=== PATIENT | male | born 1975 | race Caucasian/White ===

== ENCOUNTER 2017-05-09 19:43 | Emergency (ER) | payer OTHER ==
[2017-05-09 20:29] VITALS: BP 136/91
[2017-05-09 20:55] LABS: Eosinophils % (Auto) 2.4 % (0.0-4.3); Hematocrit 49.1 % (35.5-45.6); Hemoglobin 16.8 gm/dl (11.8-15.2); Mean Corpuscular HGB Conc 34 % (32-34); Mean Corpuscular Hemoglobin 33 pg (28-32); Mean Corpuscular Volume 95 fl (84-94); Platelet Count 194 K/mm3 (140-440); Red Blood Count 5.15 M/mm3 (3.65-5.03); Red Cell Distribution Width 13.6 % (13.2-15.2); White Blood Count 7.8 K/mm3 (4.5-11.0)
[2017-05-09 21:10] LABS: Anion Gap 21 mmol/L; BUN/Creatinine Ratio 13; Blood Urea Nitrogen 10 mg/dL (9-20); Calcium 9.5 mg/dL (8.4-10.2); Carbon Dioxide 26 mmol/L (22-30); Chloride 98.8 mmol/L (98-107); Glucose 86 mg/dL (75-100); Potassium 4.4 mmol/L (3.6-5.0); Sodium 141 mmol/L (137-145)
[2017-05-09 22:50] LABS: Urine Drugs of Abuse Note Disclamer
[2017-05-09 23:06] LABS: Bilirubin,Urine NEG (Negative); Blood,Urine NEG (Negative); Ketones,Urine 20 mg/dL (Negative); Leukocyte Esterase,Urine NEG (Negative); Mucus,Urine FEW /HPF; Nitrite,Urine NEG (Negative); Protein,Urine <15 mg/dL mg/dL (Negative)
== END 2017-05-09 20:35 | disposition left against medical advice (07) ==
LOC: ED 19:43
DX: R07.9 Chest pain, unspecified (principal); Z53.21 Procedure and treatment not carried out due to patient leaving prior to being seen by health care provider
CPT/HCPCS: 36415; 80048; 80307; 81001; 84484; 85025; 93005; 93010; G0480; 80320

== ENCOUNTER 2020-03-25 03:42 | Emergency (ER) | payer SELFPAY ==
--- NOTE | 2020-03-25 10:35 | Emergency Department Report ---
<ELO ABDULLAHI - Last Filed: 03/25/20 12:11> ED General Adult HPI - General Chief complaint: Fall Stated complaint: GENERAL ILLINESS Time Seen by Provider: 03/25/20 08:55 Source: patient, EMS Mode of arrival: Wheelchair Limitations: No Limitations - History of Present Illness Initial comments: 44-year-old -F[place]ish male patient presents with complaints of sudden onset of shortness of breath and syncopal episode x last night. Patient states he was at a store and suddenly became short of breath and passed out hitting his back on the floor. He denies any head trauma, headache, neck pain, chest pain, or current shortness of breath. He rates his back pain as a 7/10 in severity and states there is bruising to the area. Patient has history of alcohol abuse, but denies any other history of medical conditions. He does admit to alcohol use last night. Patient also denies any leg pain/swelling, cough/hemoptysis, r ecent long travel/surgeries, or history of DVT/PE/cancer. He denies being on blood thinners - Related Data Previous Rx's Medication Instructions Recorded Last Taken Type chlordiazePOXIDE [Librium] 25 mg PO .DIREPaulina #50 capsule 01/06/18 Unknown Rx Naproxen [EC-Naprosyn] 500 mg PO BID PRN #14 tablet. 03/25/20 Unknown Rx methOCARBAMOL [Robaxin TAB] 500 mg PO BID PRN #14 tab 03/25/20 Unknown Rx Allergies Allergy/AdvReac Type Severity Reaction Status Date / Time No Known Allergies Allergy Unverified 05/09/17 20:28 ED Review of Systems Constitutional: denies: chills, diaphoresis, fever, malaise Respiratory: shortness of breath. denies: cough Cardiovascular: syncope. denies: chest pain, edema Endocrine: denies: excessive sweating Gastrointestinal: denies: nausea, vomiting Genitourinary: denies: dysuria, frequency, hematuria Musculoskeletal: back pain. denies: joint swelling Skin: denies: rash, lesions, change in color Neurological: denies: headache Hematological/Lymphatic: denies: easy bleeding ED Past Medical Hx - Past Medical History Previous Medical History?: Yes Additional medical history: cocaine and alcohol abuse - Surgical History Past Surgical History?: No - Social History Smoking Status: Current Every Day Smoker - Medications Home Medications: Home Medications Medication Instructions Recorded Confirmed Last Taken Type chlordiazePOXIDE [Librium] 25 mg PO .DIREC #50 capsule 01/06/18 Unknown Rx Naproxen [EC-Naprosyn] 500 mg PO BID PRN #14 tablet.dr 03/25/20 Unknown Rx methOCARBAMOL [Robaxin TAB] 500 mg PO BID PRN #14 tab 03/25/20 Unknown Rx ED Physical Exam - General Limitations: No Limitations General appearance: alert, in no apparent distress - Head Head exam: Present: atraumatic, normocephalic - Eye Eye exam: Present: normal appearance, PERRL, EOMI. Absent: scleral icterus - Neck Neck exam: Present: normal inspection, full ROM. Absent: tenderness - Respiratory Respiratory exam: Present: normal lung sounds bilaterally. Absent: respiratory distress, wheezes, chest wall tenderness, accessory muscle use - Cardiovascular Cardiovascular Exam: Present: regular rate, normal rhythm. Absent: systolic murmur, diastolic murmur, rubs, gallop - GI/Abdominal GI/Abdominal exam: Present: soft. Absent: distended, tenderness, guarding, rebound - Extremities Exam Extremities exam: Present: full ROM. Absent: calf tenderness (No swelling or tenderness to palpation noted bilaterally tolerated) - Back Exam Back exam: Present: full ROM, paraspinal tenderness, vertebral tenderness, other (Bruising noted to mid/upper thoracic area and bilateral ribs) - Neurological Exam Neurological exam: Present: alert, oriented X3, CN II-XII intact, normal gait. Absent: motor sensory deficit - Expanded Neurological Exam Expanded Speech: Present: fluid speech Cerebellar function: Finger to Nose: Normal, Heel to Ros[place]: Normal, Romberg: Normal Sensory exam: Upper Extremity Light Touch: Normal, Lower Extremity Light Touch: Normal Motor strength exam: RUE: 5, LUE: 5, RLE: 5, LLE: 5 Best Eye Response ([place]): (4) open spontaneously Best Motor Response ([place]): (6) obeys commands Best Verbal Response ([place]): (5) oriented Quan Total: 15 - Psychiatric Psychiatric exam: Present: normal affect, normal mood - Skin Skin exam: Present: warm, dry, intact. Absent: rash, cyanosis, diaphoretic ED Medical Decision Making - Lab Data Result diagrams: 03/25/20 11:04 03/25/20 11:04 Lab Results 03/25/20 03/25/20 03/25/20 Range/Units 11:04 11:04 11:04 WBC 9.3 (4.5-11.0) K/mm3 RBC 4.71 (3.65-5.03) M/mm3 Hgb 15.2 (11.8-15.2) gm/dl Hct 44.3 (35.5-45.6) % MCV 94 (84-94) fl MCH 32 (28-32) pg MCHC 34 (32-34) % RDW 13.9 (13.2-15.2) % Plt Count 226 (140-440) K/mm3 Lymph % (Auto) 24.7 (13.4-35.0) % [place] % (Auto) 15.8 H (0.0-7.3) % Eos % (Auto) 2.5 (0.0-4.3) % Baso % (Auto) 0.5 (0.0-1.8) % Lymph # (Auto) 2.3 (1.2-5.4) K/mm3 [place] # (Auto) 1.5 H (0.0-0.8) K/mm3 Eos # (Auto) 0.2 (0.0-0.4) K/mm3 Baso # (Auto) 0.0 (0.0-0.1) K/mm3 Seg Neutrophils % 56.5 (40.0-70.0) % Seg Neutrophils # 5.3 (1.8-7.7) K/mm3 D-Dimer (0-234) ng/mlDDU Sodium 139 (137-145) mmol/L Potassium 4.1 (3.6-5.0) mmol/L Chloride 103.3 (98-107) mmol/L Carbon Dioxide 28 (22-30) mmol/L Anion Gap 12 mmol/L BUN 12 (9-20) mg/dL Creatinine 0.9 (0.8-1.3) mg/dL Estimated GFR > 60 ml/min BUN/Creatinine Ratio 13 % Glucose 101 H (75-100) mg/dL Calcium 9.2 (8.4-10.2) mg/dL Total Bilirubin 0.50 (0.1-1.2) mg/dL AST 41 H (5-40) units/L ALT 48 (7-56) units/L Alkaline Phosphatase 64 (35-129) units/L Troponin T < 0.010 (0.00-0.029) ng/mL Total Protein 7.3 (6.3-8.2) g/dL Albumin 3.8 L (3.9-5) g/dL Albumin/Globulin Ratio 1.1 % Plasma/Serum Alcohol < 0.01 (0-0.07) % 03/25/ Range/Units 11:04 WBC (4.5-11.0) K/mm3 RBC (3.65-5.03) M/mm3 Hgb (11.8-15.2) gm/dl Hct (35.5-45.6) % MCV (84-94) fl MCH (28-32) pg MCHC (32-34) % RDW (13.2-15.2) % Plt Count (140-440) K/mm3 Lymph % (Auto) (13.4-35.0) % [place] % (Auto) (0.0-7.3) % Eos % (Auto) (0.0-4.3) % Baso % (Auto) (0.0-1.8) % Lymph # (Auto) (1.2-5.4) K/mm3 [place] # (Auto) (0.0-0.8) K/mm3 Eos # (Auto) (0.0-0.4) K/mm3 Baso # (Auto) (0.0-0.1) K/mm3 Seg Neutrophils % (40.0-70.0) % Seg Neutrophils # (1.8-7.7) K/mm3 D-Dimer 645.38 H (0-234) ng/mlDDU Sodium (137-145) mmol/L Potassium (3.6-5.0) mmol/L Chloride (98-107) mmol/L Carbon Dioxide (22-30) mmol/L Anion Gap mmol/L BUN (9-20) mg/dL Creatinine (0.8-1.3) mg/dL Estimated GFR ml/min BUN/Creatinine Ratio % Glucose (75-100) mg/dL Calcium (8.4-10.2) mg/dL Total Bilirubin (0.1-1.2) mg/dL AST (5-40) units/L ALT (7-56) units/L Alkaline Phosphatase (35-129) units/L Troponin T (0.00-0.029) ng/mL Total Protein (6.3-8.2) g/dL Albumin (3.9-5) g/dL Albumin/Globulin Ratio % Plasma/Serum Alcohol (0-0.07) % - Radiology Data Radiology results: report reviewed BILATERAL RIBS 3 VIEWS INDICATION: SOB, fall w/posterior lower rib pain bruising. COMPARISON: None. IMPRESSION: No displaced rib deformity is detected on x-ray. Lungs are well- aerated. No pleural fluid or pneumothorax. THORACIC SPINE 3 VIEWS INDICATION: pain and bruising after fall COMPARISON: None. FINDINGS: No acute, displaced fracture is seen. Alignment is within normal limits. Lower thoracic discogenic degenerative change is noted. CONCLUSION: 1. No acute findings. 2. Degenerative changes, as above. - Medical Decision Making 44-year-old -F[place]ish male patient presents with complaints of sudden onset of shortness of breath and syncopal episode x last night. Patient states he was at a store and suddenly became short of breath and passed out hitting his back on the floor. He denies any head trauma, headache, neck pain, chest pain, or current shortness of breath. He rates his back pain as a 7/10 in severity and states there is bruising to the area. Patient has history of alcohol abuse, but denies any other history of medical conditions. He does admit to alcohol use last night. Patient also denies any leg pain/swelling, cough/hemoptysis, recent long travel/surgeries, or history of DVT/PE/cancer. He denies being on blood thinners Bruising and tenderness noted to posterior ribs bilaterally along with thoracic tenderness to palpation. CBC, CMP, and troponin are normal. Blood alcohol level is negative. Rib x-ray is normal. Thoracic spine x-ray is without acute findings. Dimer performed and is positive. CTA chest ordered and is pending along with CT head. UA pending. Patient handed off to Celine Orantes PA-C. ED Disposition Clinical Impression: Cocaine abuse Episode of syncope Qualifiers: Syncope type: unspecified Qualified Code(s): R55 - Syncope and collapse Dyspnea Qualifiers: Dyspnea type: unspecified Qualified Code(s): R06.00 - Dyspnea, unspecified Back pain Qualifiers: Back pain location: thoracic back pain Chronicity: acute Back pain laterality: bilateral Qualified Code(s): M54.6 - Pain in thoracic spine Rib contusion Qualifiers: Encounter type: initial encounter Laterality: unspecified laterality Qualified Code(s): S20.219A - Contusion of unspecified front wall of thorax, initial encounter Disposition: - TO HOME OR SELFCARE Condition: Stable Instructions: Muscle Strain (ED), Syncope (ED), Cocaine Abuse (ED), Contusion in Adults (ED) Additional Instructions: Please take medication as prescribed as needed. May use ice for 15 minutes at a time, rest, Epsom salt bath. Follow-up with your primary care doctor. Follow- up with a neurologist. You may not operate a motor vehicle until you have been cleared by a primary care doctor or neurologist. Return to emergency room for any new or worsening symptoms. Prescriptions: Naproxen [EC-Naprosyn] 500 mg PO BID PRN #14 tablet.dr PRN Reason: pain methOCARBAMOL [Robaxin TAB] 500 mg PO BID PRN #14 tab PRN Reason: pain Referrals: MATIAS HIGGINBOTHAM MD [Primary Care Provider] - 2-3 Days COMFORT LUCAS MD [Staff Physician] - 2-3 Days [facility] [Provider Group] - 2-3 Days RIGOBERTO FARRELL MD [Referring] - 2-3 Days Print Language: ETHIOPIAN <CELINE ORANTES - Last Filed: 03/25/20 19:29> ED Review of Systems ROS: Stated complaint: GENERAL ILLINESS Other details as noted in HPI ED Course Vital Signs 03/25/20 03/25/20 03/25/20 05:52 08:11 16:47 Temperature 98.2 F Pulse Rate 101 H 94 H 64 Respiratory 16 18 16 Rate Blood Pressure 129/80 Blood Pressure 157/111 134/77 [Right] O2 Sat by Pulse 83 L 97 97 Oximetry ED Medical Decision Making - Lab Data Result diagrams: 03/25/20 11:04 03/25/20 11:04 Vital Signs 03/25/20 03/25/20 03/25/20 05:52 08:11 16:47 Temperature 98.2 F Pulse Rate 101 H 94 H 64 Respiratory 16 18 16 Rate Blood Pressure 129/80 Blood Pressure 157/111 134/77 [Right] O2 Sat by Pulse 83 L 97 97 Oximetry Lab Results 03/25/20 03/25/20 03/25/20 Range/Units 11:04 11:04 11:04 WBC 9.3 (4.5-11.0) K/mm3 RBC 4.71 (3.65-5.03) M/mm3 Hgb 15.2 (11.8-15.2) gm/dl Hct 44.3 (35.5-45.6) % MCV 94 (84-94) fl MCH 32 (28-32) pg MCHC 34 (32-34) % RDW 13.9 (13.2-15.2) % Plt Count 226 (140-440) K/mm3 Lymph % (Auto) 24.7 (13.4-35.0) % [place] % (Auto) 15.8 H (0.0-7.3) % Eos % (Auto) 2.5 (0.0-4.3) % Baso % (Auto) 0.5 (0.0-1.8) % Lymph # (Auto) 2.3 (1.2-5.4) K/mm3 [place] # (Auto) 1.5 H (0.0-0.8) K/mm3 Eos # (Auto) 0.2 (0.0-0.4) K/mm3 Baso # (Auto) 0.0 (0.0-0.1) K/mm3 Seg Neutrophils % 56.5 (40.0-70.0) % Seg Neutrophils # 5.3 (1.8-7.7) K/mm3 D-Dimer (0-234) ng/mlDDU Sodium 139 (137-145) mmol/L Potassium 4.1 (3.6-5.0) mmol/L Chloride 103.3 (98-107) mmol/L Carbon Dioxide 28 (22-30) mmol/L Anion Gap 12 mmol/L BUN 12 (9-20) mg/dL Creatinine 0.9 (0.8-1.3) mg/dL Estimated GFR > 60 ml/min BUN/Creatinine Ratio 13 % Glucose 101 H (75-100) mg/dL Calcium 9.2 (8.4-10.2) mg/dL Total Bilirubin 0.50 (0.1-1.2) mg/dL AST 41 H (5-40) units/L ALT 48 (7-56) units/L Alkaline Phosphatase 64 (35-129) units/L Troponin T < 0.010 (0.00-0.029) ng/mL Total Protein 7.3 (6.3-8.2) g/dL Albumin 3.8 L (3.9-5) g/dL Albumin/Globulin Ratio 1.1 % Urine Color (Yellow) Urine Turbidity (Clear) Urine pH (5.0-7.0) Ur Specific [place] (1.003-1.030) Urine Protein (Negative) mg/dL Urine Glucose (UA) (Negative) mg/dL Urine Ketones (Negative) mg/dL Urine Blood (Negative) Urine Nitrite (Negative) Urine Bilirubin (Negative) Urine Urobilinogen (<2.0) mg/dL Ur Leukocyte Esterase (Negative) Urine WBC (Auto) (0.0-6.0) /HPF Urine RBC (Auto) (0.0-6.0) /HPF U Epithel Cells (Auto) (0-13.0) /HPF Urine Mucus /HPF Urine Opiates Screen Urine Methadone Screen Ur Barbiturates Screen Ur Phencyclidine Scrn Ur Amphetamines Screen U Benzodiazepines Scrn Urine Cocaine Screen U Marijuana (THC) Screen Drugs of Abuse Note Plasma/Serum Alcohol < 0.01 (0-0.07) % 03/25/20 03/25/20 03/25/20 Range/Units 11:04 14:12 14:12 WBC (4.5-11.0) K/mm3 RBC (3.65-5.03) M/mm3 Hgb (11.8-15.2) gm/dl Hct (35.5-45.6) % MCV (84-94) fl MCH (28-32) pg MCHC (32-34) % RDW (13.2-15.2) % Plt Count (140-440) K/mm3 Lymph % (Auto) (13.4-35.0) % [place] % (Auto) (0.0-7.3) % Eos % (Auto) (0.0-4.3) % Baso % (Auto) (0.0-1.8) % Lymph # (Auto) (1.2-5.4) K/mm3 [place] # (Auto) (0.0-0.8) K/mm3 Eos # (Auto) (0.0-0.4) K/mm3 Baso # (Auto) (0.0-0.1) K/mm3 Seg Neutrophils % (40.0-70.0) % Seg Neutrophils # (1.8-7.7) K/mm3 D-Dimer 645.38 H (0-234) ng/mlDDU Sodium (137-145) mmol/L Potassium (3.6-5.0) mmol/L Chloride (98-107) mmol/L Carbon Dioxide (22-30) mmol/L Anion Gap mmol/L BUN (9-20) mg/dL Creatinine (0.8-1.3) mg/dL Estimated GFR ml/min BUN/Creatinine Ratio % Glucose (75-100) mg/dL Calcium (8.4-10.2) mg/dL Total Bilirubin (0.1-1.2) mg/dL AST (5-40) units/L ALT (7-56) units/L Alkaline Phosphatase (35-129) units/L Troponin T (0.00-0.029) ng/mL Total Protein (6.3-8.2) g/dL Albumin (3.9-5) g/dL Albumin/Globulin Ratio % Urine Color Yellow (Yellow) Urine Turbidity Clear (Clear) Urine pH 6.0 (5.0-7.0) Ur Specific [place] 1.011 (1.003-1.030) Urine Protein <15 mg/dl (Negative) mg/dL Urine Glucose (UA) Neg (Negative) mg/dL Urine Ketones Tr (Negative) mg/dL Urine Blood Neg (Negative) Urine Nitrite Neg (Negative) Urine Bilirubin Neg (Negative) Urine Urobilinogen < 2.0 (<2.0) mg/dL Ur Leukocyte Esterase Neg (Negative) Urine WBC (Auto) 1.0 (0.0-6.0) /HPF Urine RBC (Auto) 2.0 (0.0-6.0) /HPF U Epithel Cells (Auto) < 1.0 (0-13.0) /HPF Urine Mucus Few /HPF Urine Opiates Screen Negative Urine Methadone Screen Negative Ur Barbiturates Screen Negative Ur Phencyclidine Scrn Negative Ur Amphetamines Screen Negative U Benzodiazepines Scrn Negative Urine Cocaine Screen Positive U Marijuana (THC) Screen Negative Drugs of Abuse Note Disclamer Plasma/Serum Alcohol (0-0.07) % - EKG Data EKG shows normal: sinus rhythm, axis, intervals, QRS complexes Rate: normal - EKG Data 03/25/20 17:37 normal early repolarization no STEMI - Radiology Data Ordering Physician: ELO ABDULLAHI Date of Service: 03/25/20 Procedure(s): CT angio chest Accession Number(s): [id number] cc: ELO BRADLY CTA CHEST WITH IV CONTRAST INDICATION: Acute onset chest pain with dyspnea plus syncope and elevated d-dimer. TECHNIQUE: Axial CT images were obtained through the chest after injection of 100 mL IV contrast. 3 plane MIP reconstructions were produced. All CT scans at this location are performed using CT dose reduction for ALARA by means of automated exposure control. COMPARISON: None available. FINDINGS: PULMONARY ARTERIES: No pulmonary emboli. AORTA AND ARTERIES: Right sided aortic arch MEDIASTINUM: No mass, lymphadenopathy or other significant abnormality. The heart is normal in size without a pericardial effusion. The trachea and main bronchi are patent and normal in caliber. LUNGS: No suspicious consolidation, nodule or mass. No pneumothorax or pleural effusion. ADDITIONAL FINDINGS: None. UPPER ABDOMEN: No acute findings. BONES: No significant osseous abnormality. IMPRESSION: 1. No CT evidence for pulmonary embolism. 2. No acute findings. Signer Name: Kevin Cheung MD Signed: 03/25/2020 3:49 PM Workstation Name: [id number] Transcribed By: BC Dictated By: Kevin Cheung MD Electronically Authenticated By: Kevin Cheung MD Signed Date/Time: 03/25/20 1549 DD/ 154 TD/TT: Ordering Physician: ELO ABDULLAHI Date of Service: 03/25/20 Procedure(s): CT head/brain wo con Accession Number(s): [id number] cc: ELO BRADLY CT BRAIN: 03/25/2020 INDICATION / CLINICAL INFORMATION: syncope. COMPARISON: None available. FINDINGS: BRAIN/INTRACRANIAL STRUCTURES: Unenhanced CT images of the brain demonstrate no evidence of acute intracranial abnormality. Ventricles and sulci are normal in size and shape. There is no evidence of ischemic injury, hemorrhage, or mass. There are no abnormal extra-axial fluid collections. EXTRACRANIAL STRUCTURES: Unremarkable. IMPRESSION: No acute abnormality. Negative unenhanced CT of the brain. All CT scans at this location are performed using dose reduction to ALARA by means of automated exposure control. Signer Name: Tone Wang MD Signed: 03/25/2020 3:20 PM Workstation Name: [id number] Transcribed By: ADRIEL Dictated By: Tone Wang MD Electronically Authenticated By: Tone Wang MD Signed Date/Time: 03/25/20 1520 DD/ TD/TT: - Medical Decision Making Patient signed out pending imaging and urine studies CT angio chest and CT head are within normal limits UA is within normal limits UDS is positive for cocaine Discussed cocaine and alcohol use with patient as this was most likely the cause of his syncopal episode, he is inquiring about outpatient rehabilitation facilities, patient given a list of those facilities He was observed in the emergency department for 12 hours and had no further incidents He denies any shortness of breath or chest pain He is ambulating without difficulty He has no focal neuro deficits Discussed case with Dr. Kuhn, ER attending who agrees with discharge Patient given prescription for naproxen and Robaxin Advised patient Please take medication as prescribed as needed. May use ice for 15 minutes at a time, rest, Epsom salt bath. Follow-up with your primary care doctor. Follow-up with a neurologist. You may not operate a motor vehicle until you have been cleared by a primary care doctor or neurologist. Return to emergency room for any new or worsening symptoms. Discuss strict return precautions Critical care attestation.: If time is entered above; I have spent that time in minutes in the direct care of this critically ill patient, excluding procedure time. ED Disposition Is pt being admited?: No Does the pt Need Aspirin: No Time of Disposition: 17:08
--- NOTE | 2020-03-25 10:54 | XRay Report ---
BILATERAL RIBS 3 VIEWS INDICATION: SOB, fall w/posterior lower rib pain bruising. COMPARISON: None. IMPRESSION: No displaced rib deformity is detected on x-ray. Lungs are well-aerated. No pleural flu id or pneumothorax. Signer Name: Tacos Llanes Jr, MD Signed: 03/25/2020 10:50 AM Workstation Name: [id number]
[2020-03-25 11:15] LABS: Basophils % (Auto) 0.5 % (0.0-1.8); Eosinophils # (Auto) 0.2 K/mm3 (0.0-0.4); Eosinophils % (Auto) 2.5 % (0.0-4.3); Hematocrit 44.3 % (35.5-45.6); Hemoglobin 15.2 gm/dl (11.8-15.2); Lymphocytes # (Auto) 2.3 K/mm3 (1.2-5.4); Lymphocytes % (Auto) 24.7 % (13.4-35.0); Mean Corpuscular HGB Conc 34 % (32-34); Mean Corpuscular Volume 94 fl (84-94); Monocytes # (Auto) 1.5 K/mm3 (0.0-0.8); Monocytes % (Auto) 15.8 % (0.0-7.3); Platelet Count 226 K/mm3 (140-440); Red Blood Count 4.71 M/mm3 (3.65-5.03); Red Cell Distribution Width 13.9 % (13.2-15.2)
--- NOTE | 2020-03-25 11:16 | XRay Report ---
THORACIC SPINE 3 VIEWS INDICATION: pain and bruising after fall COMPARISON: None. FINDINGS: No acute, displaced fracture is seen. Alignment is within normal limits. Lower thoracic discogenic degenerative change is noted. CONCLUSION: 1. No acute findings. 2. Degenerative changes, as above. Signer Name: Juanito Lopez MD Signed: 03/25/2020 11:11 AM Workstation Name: [id number]
[2020-03-25 11:42] LABS: Alanine Aminotransferase 48 units/L (7-56); Albumin 3.8 g/dL (3.9-5); BUN/Creatinine Ratio 13; Blood Urea Nitrogen 12 mg/dL (9-20); Calcium 9.2 mg/dL (8.4-10.2); Hemolysis Index 5
[2020-03-25 14:37] LABS: Bilirubin,Urine NEG (Negative); Blood,Urine NEG (Negative); Color,Urine Yellow (Yellow); Mucus,Urine FEW /HPF; Protein,Urine <15 mg/dL mg/dL (Negative); Urobilinogen,Urine < 2.0 mg/dL (<2.0)
[2020-03-25 14:45] LABS: Amphetamine Screen,Urine Negative; Benzodiazepines Screen,Urine Negative; Cannabinoid Screen,Urine Negative; Methadone Screen,Urine Negative; Opiate Screen,Urine Negative
[2020-03-25 15:08] LABS: Cocaine Screen,Urine Positive
--- NOTE | 2020-03-25 15:25 | Cat Scan Report ---
CT BRAIN: 03/25/2020 INDICATION / CLINICAL INFORMATION: syncope. COMPARISON: None available. FINDINGS: BRAIN/INTRACRANIAL STRUCTURES: Unenhanced CT images of the brain demonstrate no evidence of acute int racranial abnormality. Ventricles and sulci are normal in size and shape. There is no evidence of ischemic injury, hemorrhage, or mass. There are no abnormal extra-axial fluid collections. EXTRACRANIAL STRUCTURES: Unremarkable. IMPRESSION: No acute abnormality. Negative unenhanced CT of the brain. All CT scans at this location are performed using dose reduction to ALARA by means of automated expos ure control. Signer Name: Tone Wang MD Signed: 03/25/2020 3:20 PM Workstation Name: [id number]
--- NOTE | 2020-03-25 15:53 | Cat Scan Report ---
CTA CHEST WITH IV CONTRAST INDICATION: Acute onset chest pain with dyspnea plus syncope and elevated d-dimer. TECHNIQUE: Axial CT images were obtained through the chest after injection of 100 mL IV contrast. 3 plane MIP re constructions were produced. All CT scans at this location are performed using CT dose reduction for ALARA by means of automated exposure control. COMPARISON: None available. FINDINGS: PULMONARY ARTERIES: No pulmonary emboli. AORTA AND ARTERIES: Right sided aortic arch MEDIASTINUM: No mass, lymphadenopathy or other significant abnormality. The heart is normal in size w ithout a pericardial effusion. The trachea and main bronchi are patent and normal in caliber. LUNGS: No suspicious consolidation, nodule or mass. No pneumothorax or pleural effusion. ADDITIONAL FINDINGS: None. UPPER ABDOMEN: No acute findings. BONES: No significant osseous abnormality. IMPRESSION: 1. No CT evidence for pulmonary embolism. 2. No acute findings. Signer Name: Kevin Cheung MD Signed: 03/25/2020 3:49 PM Workstation Name: [id number]
[2020-03-25 16:48] VITALS: BP 134/77
[2020-03-25] MEDS ORDERED: KETOROLAC 60 MG/2 ML INJ IM ONE (17:24)
[2020-03-25] MEDS ORDERED: KETOROLAC 30 MG/1 ML INJ IV ONE (17:27)
== END 2020-03-25 17:49 | disposition home or self-care (01) ==
LOC: ED 03:42
DX: S20.219A Contusion of unspecified front wall of thorax, initial encounter (principal); M54.6 Pain in thoracic spine; F14.10 Cocaine abuse, uncomplicated; R06.00 Dyspnea, unspecified; R55 Syncope and collapse; F17.200 Nicotine dependence, unspecified, uncomplicated; Z79.899 Other long term (current) drug therapy; W22.8XXA Striking against or struck by other objects, initial encounter; Y93.89 Activity, other specified; Y92.89 Other specified places as the place of occurrence of the external cause; Y99.8 Other external cause status
CPT/HCPCS: 36415; 70450; 71110; 71275; 72070; 80053; 80307; 81001; 84484; 85025; 85379; 93005; 96374; 99285; J1885; Q9967; 80320; G0480